=== PATIENT | female | born 1975 | race Two or more races ===

== ENCOUNTER 2016-12-12 01:54 | Emergency (ER) | payer OTHER ==
[~2016-12-12] VITALS: Ht 160 cm; Wt 96.2 kg
[2016-12-12 02:58] LABS: Basophils # (auto) 0.1 uL; Basophils % (auto) 0.6 % (0.0-2.0); DEFINITIVE VIEW TRANSMISSION; Eosinophils # (auto) 0.8 uL; Hematocrit 36.8 % (36.0-46.0); Hemoglobin 11.8 g/dL (12.2-16.2); Lymphocytes # (auto) 2.7 uL; Mean Corpuscular Hemoglobin 22.9 pg (28.0-32.0); Mean Corpuscular Hgb Conc. 32.2 g/dL (32.0-36.0); Mean Corpuscular Volume 71.3 fL (80.0-100.0); Mean Platelet Volume 7.8 fL (7.4-10.4); Monocytes # (auto) 0.6 uL; Monocytes % (auto) 5.6 % (0.0-12.0); Neutrophils # (auto) 7.1 uL; Neutrophils % (auto) 62.8 % (37.0-80.0); Platelet Count (auto) 382 10^3/uL (140-450); Red Cell Distribution Width 17.4 % (11.6-16.0); White Blood Cell 11.3 10^3/uL (4.4-10.8)
[2016-12-12 03:02] LABS: Urine Bilirubin Negative (Negative); Urine Color PINK (Yellow); Urine Glucose Normal (Normal); Urine Ketone Negative (Negative); Urine Nitrite Negative (Negative); Urine RBC 927 /hpf (0 - 4); Urine Squamous Epithelial Cell FEW /hpf (<5); Urine Urobilinogen Normal (Negative); Urine pH 5.5 (5.0-8.0)
[2016-12-12 03:03] LABS: INR 0.93 (0.9-1.15); Partial Thromboplastin Time 26.6 sec (22.64-33.71)
[2016-12-12 03:04] LABS: Urine Blood 3+ /uL (Negative)
[2016-12-12 03:09] LABS: Albumin 3.6 g/dL (3.4-5.0); Anion Gap 10 (5-15); Aspartate Aminotransferase 18 U/L (15-37); BUN/Creatinine Ratio 9.1; Blood Urea Nitrogen 6 mg/dL (7-18); Calcium 8.1 mg/dL (8.5-10.1); Carbon Dioxide 24 mmol/L (21-32); Chloride 106 mmol/L (98-107); GFR African American 127 mL/min; GFR Non-African American 105 mL/min; Glucose 108 mg/dL (74-106); Potassium 3.6 mmol/L (3.5-5.1); Sodium 140 mmol/L (136-145)
[2016-12-12 03:14] LABS: Alkaline Phosphatase 107 U/L (45-117); Bilirubin, Total 0.3 mg/dL (0.2-1.0); Total Protein 7.7 g/dL (6.4-8.2)
[2016-12-12 03:17] LABS: B-Type Natriuretic Peptide 45.22 pg/mL (0-100)
[2016-12-12 03:21] LABS: Temperature: 21.8 C (20.0-25.0)
[2016-12-12] MEDS ORDERED: IPRATROPIUM BROM 0.5 MG/2.5ML INH SOL NEB ONE (05:00)
[2016-12-12] MEDS ORDERED: DEXAMETHASONE SOD PHOS 10MG/1ML VIAL INJ IM ONE (05:00)
[2016-12-12] MEDS ORDERED: ALBUTEROL SULF 2.5 MG/0.5ML(0.5%) NEB SOLN NEB ONE (05:00)
[2016-12-12] MEDS ORDERED: cefTRIAXone W LIDOCAINE 1 GM IM IM ONE (05:15)
[2016-12-12] MEDS ORDERED: cefTRIAXone SOD 1,000 MG VL ONE (05:36)
[2016-12-12 06:10] VITALS: BP 148/94
== END 2016-12-12 06:33 | disposition home or self-care (01) ==
LOC: ER 01:55
DX: J45.901 Unspecified asthma with (acute) exacerbation (principal); I10 Essential (primary) hypertension; N39.0 Urinary tract infection, site not specified
CPT/HCPCS: 36415; 71020; 80053; 81001; 81025; 83880; 84484; 85025; 85610; 85730; 94640; 96372; 99285; J0696; J1100

== ENCOUNTER 2021-03-06 17:09 | Inpatient (IN) | payer OTHER ==
[~2021-03-06] VITALS: Ht 167.6 cm; Wt 80.9 kg
[2021-03-06 15:35] VITALS: BP 129/76
[2021-03-06] MEDS ORDERED: MIDAZOLAM HCL 5 MG/ML-1ML VIAL ONE (17:20)
[2021-03-06] MEDS ORDERED: MIDAZOLAM HCL 5 MG/ML-1ML VIAL IV ONE (17:30)
[2021-03-06] MEDS: MIDAZOLAM DRIP 50 mg/50mL 50 ML IV SCH ×2 (17:33→19:30)
[2021-03-06] MEDS ORDERED: fentaNYL Drip 2500mCg/250mlNS 250 ML IV ONE (17:45)
[2021-03-06] MEDS ORDERED: methylPREDNISolone SOD SUCC 125 MG/2 ML VL IV ONE (18:15)
[2021-03-06] MEDS ORDERED: ETOMIDATE (2MG/ML) 20ML VIAL IV ONE (18:15)
[2021-03-06 18:43] LABS: Basophils # (auto) 0 10 ^3/uL (0-0.2); Basophils % (auto) 0.2 % (0.0-2.0); Eosinophils # (auto) 0.6 10 ^3/uL (0-0.8); Eosinophils % (auto) 2.3 % (0.0-7.0); Hematocrit 45.5 % (36.0-46.0); Hemoglobin 15.2 g/dL (12.2-16.2); Lymphocytes # (auto) 2.8 10 ^3/uL (0.4-5.4); Lymphocytes % (auto) 11.8 % (10.0-50.0); Mean Corpuscular Hemoglobin 28.9 pg (28.0-32.0); Mean Corpuscular Hgb Conc. 33.4 g/dL (32.0-36.0); Mean Corpuscular Volume 86.7 fL (80.0-100.0); Monocytes # (auto) 0.8 10 ^3/uL (0-1.3); Monocytes % (auto) 3.6 % (0.0-12.0); Neutrophils # (auto) 19.5 10 ^3/uL (1.6-8.6); Neutrophils % (auto) 82.1 % (37.0-80.0); Nucleated Red Blood Cells % 0.1 %; Red Blood Cells 5.25 10^6/uL (4.0-5.20); Red Cell Distribution Width 13.8 % (11.8-14.3); White Blood Cell 23.7 10^3/uL (4.4-10.8)
[2021-03-06 18:51] LABS: Urine Bacteria NONE SEEN /hpf (None Seen); Urine Blood Negative /uL (Negative); Urine Hyaline Cast FEW /lpf (0 - 2); Urine Mucus FEW (None Seen); Urine Specific Gravity 1.017 (1.001-1.035); Urine WBC 2 /hpf (0 - 5)
[2021-03-06 18:54] VITALS: BP 102/75
[2021-03-06] MEDS ORDERED: fentaNYL Drip 2500mCg/250mlNS 250 ML IV SCH (19:00)
[2021-03-06 19:01] LABS: INR 0.92 (0.9-1.15); Partial Thromboplastin Time 26.3 sec (23.0-31.2)
[2021-03-06 19:02] LABS: Chloride 110 mmol/L (98-107); Potassium 3.3 mmol/L (3.5-5.1); Sodium 139 mmol/L (136-145)
[2021-03-06 19:09] LABS: Alanine Aminotransferase 30 U/L (13-56); Alkaline Phosphatase 125 U/L (45-117); Anion Gap 6 (5-15); Aspartate Aminotransferase 23 U/L (15-37); BUN/Creatinine Ratio 20.7; Bilirubin, Total 0.2 mg/dL (0.2-1.0); Blood Urea Nitrogen 12 mg/dL (7-18); CRP High Sensitivity 0.11 mg/dL (< 0.3); Carbon Dioxide 23 mmol/L (21-32); GFR African American 145 mL/min; GFR Non-African American 119 mL/min; Glucose 193 mg/dL (74-106); Magnesium 2.4 mg/dL (1.6-2.6)
[2021-03-06 20:00] VITALS: BP 102/70
[2021-03-06] MEDS ORDERED: KETAMINE HCL 500 MG in SODIUM CHL 0.9% 490 ML IV SCH (22:00)
[2021-03-06 22:40] VITALS: BP 102/67
[2021-03-06] MEDS ORDERED: AZITHROMYCIN 200 MG/5 ML ORAL SUSP PO ONE (22:45)
[2021-03-06] MEDS ORDERED: cefTRIAXone 1GM/50ML D5W 50 ML IV ONE (22:45)
[2021-03-07] VITALS (66 sets, daily range): BP systolic 102–167; BP diastolic 52–88
[2021-03-07] MEDS ORDERED: ALBUTEROL SULF 2.5 MG/0.5ML(0.5%) NEB SOLN ONE (00:23)
[2021-03-07] MEDS ORDERED: IOHEXOL 350 MG/ML 100ML IJ ONE (01:18)
[2021-03-07] MEDS: MIDAZOLAM DRIP 50 mg/50mL 50 ML IV SCH ×2 (03:51→18:17)
[2021-03-07] MEDS ORDERED: ONDANSETRON HCL 4 MG/2 ML VIAL IV PRN (05:00)
[2021-03-07] MEDS ORDERED: ACETAMINOPHEN 325 MG TAB PO PRN (05:00)
[2021-03-07] MEDS ORDERED: MORPHINE SULF INJ 2 MG/ML SYRINGE 1ML IV PRN (05:00)
[2021-03-07] MEDS ORDERED: NITROGLYCERIN 0.4 MG SL TAB SL PRN (05:00)
[2021-03-07] MEDS ORDERED: SODIUM BICARBONATE 50ML VIAL 100 ML in SOD CHL 0.45% 1,000 ML IV SCH (05:00)
[2021-03-07] MEDS ORDERED: ALBUTEROL SULF 2.5 MG/0.5ML(0.5%) NEB SOLN NEB SCH (06:00)
[2021-03-07] MEDS ORDERED: IPRATROPIUM BROM 0.5 MG/2.5ML INH SOL NEB SCH (06:00)
[2021-03-07] MEDS ORDERED: SODIUM BICARBONATE 8.4 % INJ 50ML VIAL IV ONE (06:07)
[2021-03-07 06:43] LABS: Basophils # (auto) 0.1 10 ^3/uL (0-0.2); Basophils % (auto) 0.3 % (0.0-2.0); Eosinophils # (auto) 0 10 ^3/uL (0-0.8); Hematocrit 42.6 % (36.0-46.0); Hemoglobin 14.2 g/dL (12.2-16.2); Lymphocytes # (auto) 0.7 10 ^3/uL (0.4-5.4); Lymphocytes % (auto) 3.9 % (10.0-50.0); Mean Corpuscular Hgb Conc. 33.3 g/dL (32.0-36.0); Mean Corpuscular Volume 87.1 fL (80.0-100.0); Monocytes # (auto) 0.7 10 ^3/uL (0-1.3); Neutrophils # (auto) 15.6 10 ^3/uL (1.6-8.6); Neutrophils % (auto) 91.8 % (37.0-80.0); Red Blood Cells 4.89 10^6/uL (4.0-5.20); Red Cell Distribution Width 14.4 % (11.8-14.3)
[2021-03-07 07:25] LABS: Albumin 3.8 g/dL (3.4-5.0); Anion Gap 14 (5-15); Blood Urea Nitrogen 16 mg/dL (7-18); Calcium 8.3 mg/dL (8.5-10.1); Carbon Dioxide 18 mmol/L (21-32); Chloride 110 mmol/L (98-107); Glucose 185 mg/dL (74-106); Potassium 3.6 mmol/L (3.5-5.1); Sodium 142 mmol/L (136-145)
[2021-03-07 07:27] LABS: Alanine Aminotransferase 26 U/L (13-56); Aspartate Aminotransferase 12 U/L (15-37); BUN/Creatinine Ratio 15.2; GFR African American 73 mL/min; GFR Non-African American 60 mL/min
[2021-03-07 07:29] LABS: Alkaline Phosphatase 97 U/L (45-117); Bilirubin, Total 0.2 mg/dL (0.2-1.0); Total Protein 7.6 g/dL (6.4-8.2)
[2021-03-07] MEDS ORDERED: levoFLOXacin 500MG 100 ML IV SCH (10:00)
[2021-03-07] MEDS: methylPREDNISolone SOD SUCC 125 MG/2 ML VL IV SCH ×2 (10:15→21:23)
[2021-03-07] MEDS: PANTOPRAZOLE 40 MG/10 ML VIAL INJ IV SCH (10:15)
[2021-03-07] MEDS: ENOXAPARIN SOD 40 MG/0.4 ML SYRINGE SC SCH (10:16)
[2021-03-07] MEDS ORDERED: BUDESONIDE (INHALATION) 0.5 MG/2 ML NEB NEB ONE (11:15)
[2021-03-07] MEDS: SODIUM CHLORIDE 0.9% 1,000 ML IV SCH (11:25)
[2021-03-07] MEDS: IPRATROPIUM BROM 0.5 MG/2.5ML INH SOL NEB SCH ×3 (14:38→22:23)
[2021-03-07] MEDS: ALBUTEROL SULF 2.5 MG/0.5ML(0.5%) NEB SOLN NEB SCH ×3 (14:38→22:22)
[2021-03-07] MEDS ORDERED: ALBUAER3 INH (15:06)
[2021-03-07] MEDS: fentaNYL Drip 2500mCg/250mlNS 250 ML IV SCH (17:32)
[2021-03-07] MEDS: BUDESONIDE (INHALATION) 0.5 MG/2 ML NEB NEB SCH (18:19)
[2021-03-08] VITALS (70 sets, daily range): BP systolic 124–183; BP diastolic 58–100
[2021-03-08] MEDS: SODIUM CHLORIDE 0.9% 1,000 ML IV SCH ×2 (01:48→14:06)
[2021-03-08] MEDS: hydrALAZINE HCL 20 MG/ML VL IV PRN ×2 (01:58→09:33)
[2021-03-08] MEDS: IPRATROPIUM BROM 0.5 MG/2.5ML INH SOL NEB SCH ×6 (02:12→22:04)
[2021-03-08] MEDS: ALBUTEROL SULF 2.5 MG/0.5ML(0.5%) NEB SOLN NEB SCH ×3 (02:12→10:58)
[2021-03-08 04:16] LABS: Basophils # (auto) 0 10 ^3/uL (0-0.2); Basophils % (auto) 0.1 % (0.0-2.0); Eosinophils # (auto) 0 10 ^3/uL (0-0.8); Eosinophils % (auto) 0.1 % (0.0-7.0); Hematocrit 37.9 % (36.0-46.0); Hemoglobin 12.9 g/dL (12.2-16.2); Lymphocytes # (auto) 0.9 10 ^3/uL (0.4-5.4); Lymphocytes % (auto) 5.8 % (10.0-50.0); Mean Corpuscular Hgb Conc. 34.1 g/dL (32.0-36.0); Mean Corpuscular Volume 85.1 fL (80.0-100.0); Monocytes # (auto) 0.3 10 ^3/uL (0-1.3); Monocytes % (auto) 1.9 % (0.0-12.0); Neutrophils # (auto) 13.8 10 ^3/uL (1.6-8.6); Neutrophils % (auto) 92.1 % (37.0-80.0); Red Blood Cells 4.45 10^6/uL (4.0-5.20); Red Cell Distribution Width 14.3 % (11.8-14.3)
[2021-03-08 04:26] LABS: Albumin 3.3 g/dL (3.4-5.0); BUN/Creatinine Ratio 27.8; Calcium 8.1 mg/dL (8.5-10.1); Potassium 3.2 mmol/L (3.5-5.1)
[2021-03-08 04:28] LABS: Bilirubin, Total 0.3 mg/dL (0.2-1.0); Total Protein 6.7 g/dL (6.4-8.2)
[2021-03-08] MEDS: BUDESONIDE (INHALATION) 0.5 MG/2 ML NEB NEB SCH ×2 (06:17→18:20)
[2021-03-08] MEDS: POTASSIUM CHL 20MEQ/100ML 100 ML IV SCH ×2 (06:30→14:04)
[2021-03-08] MEDS: PANTOPRAZOLE 40 MG/10 ML VIAL INJ IV SCH (10:00)
[2021-03-08] MEDS: methylPREDNISolone SOD SUCC 125 MG/2 ML VL IV SCH ×2 (10:00→21:56)
[2021-03-08] MEDS: fentaNYL Drip 2500mCg/250mlNS 250 ML IV SCH (11:15)
[2021-03-08] MEDS ORDERED: LORazepam 2MG/ML-1ML VIAL IV PRN (11:30)
[2021-03-08] MEDS: LABETALOL HCL 5 MG/ML 4ML SYRINGE IV PRN ×2 (13:11→18:44)
[2021-03-08] MEDS ORDERED: cefTRIAXone 1GM/50ML D5W 50 ML IV ONE (13:15)
[2021-03-08] MEDS ORDERED: LABETALOL HCL 5 MG/ML 4ML SYRINGE IV ONE (13:16)
[2021-03-08] MEDS ORDERED: AZITHROMYCIN 500MG/ 250ML 250 ML IV ONE (14:00)
[2021-03-08] MEDS: ENOXAPARIN SOD 40 MG/0.4 ML SYRINGE SC SCH (14:05)
[2021-03-08] MEDS: LEVALBUTEROL HCL 1.25 MG/3 ML NEB NEB SCH ×3 (14:16→22:04)
[2021-03-08] MEDS ORDERED: EPINEPHrine HCL 0.5 ML NEB ONE (15:57)
[2021-03-08] MEDS ORDERED: EPINEPHrine HCL 0.5 ML NEB NEB ONE (16:00)
[2021-03-09] VITALS (17 sets, daily range): BP systolic 146–174; BP diastolic 77–92
[2021-03-09] MEDS: IPRATROPIUM BROM 0.5 MG/2.5ML INH SOL NEB SCH ×7 (02:13→22:09)
[2021-03-09] MEDS: LEVALBUTEROL HCL 1.25 MG/3 ML NEB NEB SCH ×7 (02:13→22:10)
[2021-03-09] MEDS: SODIUM CHLORIDE 0.9% 1,000 ML IV SCH ×2 (03:15→06:43)
[2021-03-09 04:22] LABS: Basophils # (auto) 0 10 ^3/uL (0-0.2); Basophils % (auto) 0.1 % (0.0-2.0); Eosinophils # (auto) 0 10 ^3/uL (0-0.8); Eosinophils % (auto) 0.1 % (0.0-7.0); Hematocrit 38.1 % (36.0-46.0); Hemoglobin 12.7 g/dL (12.2-16.2); Lymphocytes # (auto) 0.8 10 ^3/uL (0.4-5.4); Lymphocytes % (auto) 5.6 % (10.0-50.0); Mean Corpuscular Hemoglobin 28.9 pg (28.0-32.0); Mean Corpuscular Hgb Conc. 33.4 g/dL (32.0-36.0); Mean Corpuscular Volume 86.4 fL (80.0-100.0); Monocytes # (auto) 0.2 10 ^3/uL (0-1.3); Monocytes % (auto) 1.4 % (0.0-12.0); Neutrophils # (auto) 13.7 10 ^3/uL (1.6-8.6); Neutrophils % (auto) 92.8 % (37.0-80.0); Red Blood Cells 4.41 10^6/uL (4.0-5.20); Red Cell Distribution Width 14.6 % (11.8-14.3); White Blood Cell 14.8 10^3/uL (4.4-10.8)
[2021-03-09 04:36] LABS: Calcium 7.6 mg/dL (8.5-10.1); Potassium 4.1 mmol/L (3.5-5.1)
[2021-03-09] MEDS: BUDESONIDE (INHALATION) 0.5 MG/2 ML NEB NEB SCH ×2 (06:51→22:09)
[2021-03-09] MEDS: cefTRIAXone 1GM/50ML D5W 50 ML IV SCH (09:10)
[2021-03-09] MEDS: PANTOPRAZOLE 40 MG/10 ML VIAL INJ IV SCH (09:49)
[2021-03-09] MEDS: AZITHROMYCIN 500MG/ 250ML 250 ML IV SCH (09:50)
[2021-03-09] MEDS: methylPREDNISolone SOD SUCC 125 MG/2 ML VL IV SCH ×2 (09:50→21:41)
[2021-03-09] MEDS: ENOXAPARIN SOD 40 MG/0.4 ML SYRINGE SC SCH (09:50)
[2021-03-09] MEDS ORDERED: hydrALAZINE HCL 20 MG/ML VL IV PRN (12:45)
[2021-03-10] MEDS: IPRATROPIUM BROM 0.5 MG/2.5ML INH SOL NEB SCH ×6 (02:51→22:24)
[2021-03-10] MEDS: LEVALBUTEROL HCL 1.25 MG/3 ML NEB NEB SCH ×6 (02:51→22:24)
[2021-03-10 05:00] VITALS: BP 139/74
[2021-03-10] MEDS: BUDESONIDE (INHALATION) 0.5 MG/2 ML NEB NEB SCH ×2 (06:54→19:19)
[2021-03-10 09:00] VITALS: BP 149/81
[2021-03-10] MEDS: methylPREDNISolone SOD SUCC 125 MG/2 ML VL IV SCH (09:46)
[2021-03-10] MEDS: AZITHROMYCIN 500MG/ 250ML 250 ML IV SCH (09:46)
[2021-03-10] MEDS: cefTRIAXone 1GM/50ML D5W 50 ML IV SCH (09:46)
[2021-03-10] MEDS: PANTOPRAZOLE 40 MG TAB PO SCH (09:46)
[2021-03-10] MEDS: ENOXAPARIN SOD 40 MG/0.4 ML SYRINGE SC SCH (09:46)
[2021-03-10] MEDS ORDERED: predniSONE 20 MG TAB PO ONE (11:00)
[2021-03-10 13:00] VITALS: BP 135/89
[2021-03-10 17:00] VITALS: BP 150/87
[2021-03-10 22:00] VITALS: BP 145/92
[2021-03-11] MEDS: LEVALBUTEROL HCL 1.25 MG/3 ML NEB NEB SCH ×5 (02:59→15:00)
[2021-03-11] MEDS: IPRATROPIUM BROM 0.5 MG/2.5ML INH SOL NEB SCH ×5 (02:59→15:00)
[2021-03-11 05:00] VITALS: BP 142/98
[2021-03-11] MEDS: BUDESONIDE (INHALATION) 0.5 MG/2 ML NEB NEB SCH (07:21)
[2021-03-11 09:00] VITALS: BP 143/79
[2021-03-11] MEDS: cefTRIAXone 1GM/50ML D5W 50 ML IV SCH (09:13)
[2021-03-11] MEDS: PANTOPRAZOLE 40 MG TAB PO SCH (09:14)
[2021-03-11] MEDS: ENOXAPARIN SOD 40 MG/0.4 ML SYRINGE SC SCH (09:14)
[2021-03-11] MEDS ORDERED: AZITHROMYCIN 250 MG TAB PO SCH (10:00)
[2021-03-11] MEDS ORDERED: predniSONE 20 MG TAB PO SCH (10:00)
[2021-03-11 13:28] VITALS: BP 143/79
== END 2021-03-11 14:45 | disposition home or self-care (01) | DRG 871 ==
LOC: EDBD 17:09 → ER 17:09 → TELE 03-07 04:51 → ICU WEST 03-07 07:40 → WEST WING 03-09 14:25 → TELE-WESTW 03-09 14:48 → WEST WING 03-10 10:58
PROVIDERS: ADMIT Nurse Practitioner; ATTEND Internal Medicine
PROC: 0BH17EZ Insertion of Endotracheal Airway into Trachea, Via Natural or Artificial Opening (ICD-10-PCS; principal; 2021-03-06)
PROC: 5A1945Z Respiratory Ventilation, 24-96 Consecutive Hours (ICD-10-PCS; 2021-03-06)
DX: A41.9 Sepsis, unspecified organism (principal); J18.9 Pneumonia, unspecified organism; J96.01 Acute respiratory failure with hypoxia; J45.901 Unspecified asthma with (acute) exacerbation; I10 Essential (primary) hypertension; Z20.822 Contact with and (suspected) exposure to COVID-19
CPT/HCPCS: 31500; 36415; 36600; 51702; 70450; 71045; 71260; 74177; 80048; 80053; 81001; 82728; 82805; 82962; 83605; 83615; 83735; 83880; 84443; 84484; 84702; 85025; 85379; 85610; 85730; 86141; 87040; 87070; 87081; 87205; 87426; 93005; 94003; 94640; 96365; 96366; 96367; 96368; 96375; C9113; G0378; J0696; J1956; J2250; J3480; J3490

== ENCOUNTER 2023-01-15 18:26 | Emergency (ER) | payer OTHER ==
[~2023-01-15] VITALS: Ht 154.9 cm; Wt 96.6 kg
[~2023-01-15 18:26] MED LIST: ALBUAER3 INH
[2023-01-15] MEDS ORDERED: IPRATROPIUM BROM 0.5 MG/2.5ML INH SOL NEB ONE (18:45)
[2023-01-15] MEDS ORDERED: ALBUTEROL SULF 2.5 MG/0.5ML(0.5%) NEB SOLN NEB ONE ×2 (18:45→21:30)
[2023-01-15] MEDS ORDERED: DexAMETHasone SOD PHOS 10MG/1ML VIAL INJ IM ONE (21:30)
[2023-01-16] MEDS ORDERED: DEX4T PO (01:19)
[2023-01-16] MEDS ORDERED: AZIT-43 PO (01:19)
[2023-01-16] MEDS ORDERED: ALBU108A5 IN (01:19)
[2023-01-16 01:30] VITALS: BP 150/79
== END 2023-01-16 01:38 | disposition home or self-care (01) ==
LOC: ER 18:47
DX: J45.909 Unspecified asthma, uncomplicated (principal); I10 Essential (primary) hypertension; Z20.822 Contact with and (suspected) exposure to COVID-19
CPT/HCPCS: 36415; 71045; 87426; 87804; 94640; 96372; 99284; J1100; J7644